=== PATIENT | male | born 1995 | race African-American/Black ===

== ENCOUNTER 2016-08-16 00:43 | Emergency (ER) | payer OTHER ==
[~2016-08-16] VITALS: Ht 185.4 cm; Wt 109.0 kg
[2016-08-16 00:47] VITALS: BP 145/72; TEMP 99.1; O2SAT 98
[2016-08-16 00:49] VITALS: PULSE 76; RESP 18; O2SAT 98
--- NOTE | 2016-08-16 01:13 | PD ---
HPI Chief Complaint: Injury Time Seen by Provider: 01:02 Travel History International Travel<30 days: No Contact w/Intl Traveler<30days: No Traveled to known affect area: No History of Present Illness HPI 20-year-old male presents for evaluation of left foot pain. He reports that this afternoon he was playing football and someone stepped on his left foot. He now has dorsal proximal left foot pain, throbbing, worse when standing. He denies any other injuries and he has no other complaints at this time. [facility] Past Medical History Medical History: Denies Significant Hx Diminished Hearing: No Tetanus Vaccination: < 5 Years Influenza Vaccination: No Social History Alcohol Use: No Tobacco Use: No Substance Use: No Allergies-Medications (Allergen,Severity, Reaction): Coded Allergies: No Known Allergies (Unverified , 08/16/16) Reported Meds & Prescriptions Reported Meds & Active Scripts Active Ibuprofen 800 Mg Tab 800 Mg PO Q6HR PRN Review of Systems Musculoskeletal: Positive: Pain Skin: Positive Other (no open wounds) Physical Exam Narrative GENERAL: Well-nourished male in no acute distress SKIN: Warm and dry. Extremities: Tender to palpation dorsal proximal left foot. No obvious deformities. No pain with active or passive range of motion of the toes of the left foot, 5 out of 5 muscle strength dorsi and plantar flexion left foot. 2+ dorsalis pedis and posterior tibial pulses. Data Data Last Documented VS Vital Signs Date Time Temp Pulse Resp B/P Pulse Ox O2 Delivery O2 Flow Rate FiO2 08/16/16 00:57 14 99 Room Air 08/16/16 00:49 76 08/16/16 00:47 99.1 145/72 Orders Foot, Complete ([id number]) (08/16/16 ) [facility] Medical Decision Making Medical Screen Exam Complete: Yes Emergency Medical Condition: Yes Medical Record Reviewed: Yes Differential Diagnosis Contusion versus metatarsal fracture versus abrasion versus compartment syndrome versus strain Narrative Course 20-year-old male here with dorsal left foot pain after being stepped on during a football game. X-ray imaging reveals no acute abnormalities. The patient appears to have a foot contusion. He is being discharged with ibuprofen prescription. Diagnosis Primary Impression: Foot contusion Qualified Code: S90.32XA - Contusion of left foot, initial encounter Additional Instructions: Medication as needed. Take with meals. Ice pack to the affected area 15-20 minutes at a time several times a day over the next few days. Follow-up with primary care as needed and return for any emergent medical conditions. Med/Other Pt SpecificInfo: Prescription(s) given Scripts Ibuprofen 800 Mg Gno073 Mg PO Q6HR PRN (PAIN) #40 TAB Ref 0 Prov:Arnoldo Barksdale MD 08/16/16 Disposition: 01 DISCHARGE HOME Condition: Stable Mike Ryder Aug 16, 2016 01:13
--- NOTE | 2016-08-16 01:34 | RADRPT ---
EXAM DATE/TIME: 08/16/2016 01:14 [place] COMPARISON: No previous studies available for comparison. INDICATIONS : Left foot pain. MEDICAL HISTORY : Fracture, left ankle. SURGICAL HISTORY : ORIF, left ankle. ENCOUNTER: Initial ACUITY: 1 day PAIN SCORE: 5/10 LOCATION: Left foot. FINDINGS: No definite fractures, or dislocations are identified. No definite lytic or sclerotic lesion is seen . Side plate and screws traverse the distal fibula without evidence for acute fracture. There are hyp ertrophic changes involving the medial malleolus. CONCLUSION: Chronic changes and no evidence for acute fracture. Michael Moncada MD on August 16, 2016 at 1:30 Board Certified Radiologist. This report was verified electronically.
[2016-08-16] MEDS ORDERED: IBUP800T23 PO (01:39)
== END 2016-08-16 02:15 | disposition home or self-care (01) ==
LOC: NEPK 00:43
DX: S90.32XA Contusion of left foot, initial encounter (principal); W50.0XXA Accidental hit or strike by another person, initial encounter; Y93.61 Activity, american tackle football
CPT/HCPCS: 73630; 99283; E0113